=== PATIENT | male | born 1985 | race Caucasian/White ===

== ENCOUNTER 2018-01-04 17:23 | Emergency (ER) | payer BC ==
--- NOTE | 2018-01-04 17:29 | EDM.PDOC ---
ED HPI GENERAL MEDICAL PROBLEM - General Stated Complaint: RIGHT POINTER FINGER PAIN Time Seen by Provider: 01/04/18 17:26 Source of Information: Reports: Patient History Limitations: Reports: No Limitations - History of Present Illness INITIAL COMMENTS - FREE TEXT/NARRATIVE: HISTORY AND PHYSICAL: History of present illness: Patient is a 32-year-old male who presents to the emergency room today with complaints of a crush injury to the right index finger. He states that this occurred earlier today and did irrigate and cleanse the small lacerated area thoroughly prior to applying Steri-Strips. He does have this wrapped any need dressing. States he is here today to get an x-ray to ensure there are no fractures. Tetanus has been updated within the last 1-2 years. Denies any other extremity involvement. Review of systems: As per history of present illness and below otherwise all systems reviewed and negative. Past medical history: As per history of present illness and as reviewed below otherwise noncontributory. Surgical history: As per history of present illness and as reviewed below otherwise noncontributory. Social history: No reported history of drug or alcohol abuse. Family history: As per history of present illness and as reviewed below otherwise noncontributory. Physical exam: General: Well-developed and well-nourished 32-year-old male. Alert and oriented. Nontoxic appearing and in no acute distress. HEENT: Atraumatic, normocephalic, pupils equal and reactive bilaterally, negative for conjunctival pallor or scleral icterus, mucous membranes moist, throat clear, neck supple, nontender, trachea midline. No drooling or trismus noted. No meningeal signs Lungs: Clear to auscultation, breath sounds equal bilaterally, chest nontender. Heart: S1S2, regular rate and rhythm without overt murmur Abdomen: Soft, nondistended, nontender. Negative for masses or hepatosplenomegaly. Negative for costovertebral tenderness. Pelvis: Stable nontender. Genitourinary: Deferred. Rectal: Deferred. Skin: 1cm laceration to the dorsal aspect of the mid second digit on the right hand. Steri-Strips are covering this laceration. The skin appears clean and dry. No erythema noted. Capillary refill less than 3 seconds. Strong radial pulse. Good flexion and extension of the finger, appears to have no tendon involvement. Otherwise skin is intact, warm, dry. No lesions or rashes noted. Extremities: Moves all extremities per self without difficulty or deficits, pain with palpation of the right index finger. See skin for details. Does not appear to have any tendon involvement. Full strength noted. He is negative for cords or calf pain. Neurovascular unremarkable. Neuro: Awake, alert, oriented. Cranial nerves II through XII unremarkable. Cerebellum unremarkable. Motor and sensory unremarkable throughout. Exam nonfocal. Notes: Patient states that he would like an x-ray of the finger. He does have Steri- Strips across a 1 cm laceration to the mid right index finger. He refuses to have these removed as he states this is well irrigated and does not desire any stitches. X-ray shows no evidence of fracture or dislocation. He again declines wound care or sutures of the laceration, aware of the risks. Tdap is up-to-date. Supportive care measures were reviewed and discussed. Denies any further questions or concerns at this time. Diagnostics: X-ray Therapeutics: Spoon Splint Prescription: None Impression: Crush Injury Plan: 1. Rest, ice, elevate the affected extremity. 2. Tylenol and/or ibuprofen as needed for pain management. 3. Keep the area clean and dry. Continue to monitor for signs of infection. 4. Follow-up with her primary caregiver in the next 1-2 days. Return to the ED as needed and as discussed. Definitive disposition and diagnosis as appropriate pending reevaluation and review of above. right bpointer finger Pain Score (Numeric/FACES): 2 - Related Data Allergies Allergy/AdvReac Type Severity Reaction Status Date / Time No Known Allergies Allergy Verified 01/04/18 17:41 Home Meds: Home Meds . [No Known Home Meds] 01/04/18 [History] Review of Systems - Review of Systems Review Of Systems: ROS reveals no pertinent complaints other than HPI. ED EXAM, GENERAL - Physical Exam Exam: See Below (See dictation) Course - Vital Signs Last Recorded V/S: Last Vital Signs Temp 96.0 F 01/04/18 17:42 Pulse 91 01/04/18 17:42 Resp 18 01/04/18 17:42 BP 131/83 01/04/18 17:42 Pulse Ox 95 01/04/18 17:42 - Orders/Labs/Meds Orders: Active Orders 24 hr Category Date Time Status Fingers Second Digit Rt F6 [CR] Stat Exams 01/04/18 17:44 Taken Departure - Departure Time of Disposition: 18:13 Disposition: Home, Self-Care 01 Clinical Impression: Crush injury - Discharge Information Instructions: Crush Injury of the Hand, [id number] Additional Instructions: The following information is given to patients seen in the emergency department who are being discharged to home. This information is to outline your options for follow-up care. We provide all patients seen in our emergency department with a follow-up referral. The need for follow-up, as well as the timing and circumstances, are variable depending upon the specifics of your emergency department visit. If you don't have a primary care physician on staff, we will provide you with a referral. We always advise you to contact your personal physician following an emergency department visit to inform them of the circumstance of the visit and for follow-up with them and/or the need for any referrals to a consulting specialist. The emergency department will also refer you to a specialist when appropriate. This referral assures that you have the opportunity for follow-up care with a specialist. All of these measure are taken in an effort to provide you with optimal care, which includes your follow-up. Under all circumstances we always encourage you to contact your private physician who remains a resource for coordinating your care. When calling for follow-up care, please make the office aware that this follow-up is from your recent emergency room visit. If for any reason you are refused follow-up, please contact the [facility] Emergency Department at and asked to speak to the emergency department charge nurse. [facility] [place] [id number] [facility] Specialty [facility] - Plastic Surgery/Hand Surgeon Professional Building [address] [place] [address], [address] [place] [address] 1. Rest, ice, elevate the affected extremity. 2. Tylenol and/or ibuprofen as needed for pain management. 3. Keep the area clean and dry. Continue to monitor for signs of infection. 4. Follow-up with her primary caregiver in the next 1-2 days. Return to the ED as needed and as discussed. - My Orders Last 24 Hours: My Active Orders 01/04/18 17:44 Fingers Second Digit Rt F6 [CR] Stat - Assessment/Plan Last 24 Hours: My Active Orders 01/04/18 17:44 Fingers Second Digit Rt F6 [CR] Stat
--- NOTE | 2018-01-05 09:17 | CR ---
EXAM DATE: 01/04/18 PATIENT'S AGE: 32 Patient: ORVILLE BRIAN Facility: [place], [place] Site . Site : [id number] Study: XRay Extremity Right 2nd digit [id number]/1/2018 6:04:20 PM Ordering Physician: Doctor Gomez Final Report: INDICATION: Crush finger injury TECHNIQUE: Finger radiograph 3 views right 2nd COMPARISON: None FINDINGS: Bone: A small intra-articular cortical defect within adjacent calcification is seen near the base of the 2nd proximal phalanx. A corticated ossicle is seen adjacent to the radial styloid. Joint: The metacarpophalangeal and interphalangeal joints are normal in appearance. Soft tissue: Unremarkable. No radiopaque foreign bodies are seen. IMPRESSION: 1. A small intra-articular cortical defect within adjacent calcification is seen near the base of the 2nd proximal phalanx. This is likely a chronic finding given its slightly smooth margins. Correlation with physical exam for focal tenderness in this region is recommended to exclude an acute fracture. Dictated by Micah Quinn MD @ 01/04/2018 6:16:52 PM Dictated by: Micah Quinn MD @ 01/04/2018 18:16:58 (Electronic Signature) Report Signed by Proxy. SEAN
== END 2018-01-04 18:35 | disposition home or self-care (01) ==
LOC: MW.ED 17:23
DX: S67.190A Crushing injury of right index finger, initial encounter (principal); W23.1XXA Caught, crushed, jammed, or pinched between stationary objects, initial encounter
CPT/HCPCS: 73140-26-F6; 73140-F6; 99283

== ENCOUNTER 2020-01-08 18:43 | Emergency (ER) | payer BC ==
[2020-01-08] MEDS ORDERED: Morphine 4 MG/ML Syringe IVPUSH ONE (19:05)
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
--- NOTE | 2020-01-08 19:44 | CR ---
INDICATION: [place] view, tibial plateau fracture? COMPARISON: None available. TECHNIQUE: Three views of the left knee. FINDINGS: Moderate-sized left knee joint effusion. A definite fracture is not seen. No degenerative change. IMPRESSION: Moderate-sized knee joint effusion without definite fracture. Consider MRI to further evaluate. Dictated by Darrion Covarrubias MD @ Jan 08 2020 7:37PM (Electronically Signed)
== END 2020-01-08 20:23 | disposition home or self-care (01) ==
LOC: MW.ED 18:43
DX: S83.92XA Sprain of unspecified site of left knee, initial encounter (principal); X58.XXXA Exposure to other specified factors, initial encounter; Y93.89 Activity, other specified
CPT/HCPCS: 73562; 73590; 96374; 99283; J2270